=== PATIENT | male | born 1960 | race Caucasian/White ===

== ENCOUNTER 2018-04-11 17:25 | Emergency (ER) | payer MEDICAID ==
[2018-04-11] MEDS ORDERED: DUL20 PO (17:32)
--- NOTE | 2018-04-11 17:40 | ER Report ---
History and Physical Time Seen By MD: 17:29 Hx. of Stated Complaint: HTN, MILD HEADACHES (LAURORA,FREDERICK V DO) HPI/ROS CHIEF COMPLAINT: headaches HISTORY OF PRESENT ILLNESS: PT here for evaluation of htn. Pt blood pressure baseline is usually 135/80ish per pt. PT was started on cymbalta 5 days ago by [facility] for neuropathy. Pt has been on cymbalta for neuropathy years ago and is not sure if he had htn with it in the past. Pt has been taking his blood pressure twice a day since the cymbata was started and has noticed this bp climbing daily. Pt also has had mild headcahe on and off. no cp. no sob. went to [facility] who sent him to urgent care who sent him to ed for further evaluation. REVIEW OF SYSTEMS: Constitutional: No fever, no chills. Eyes: No discharge. ENT: No sore throat. Cardiovascular: No chest pain, no palpitations. Respiratory: No cough, no shortness of breath. Gastrointestinal: No abdominal pain, no vomiting. Genitourinary: No hematuria. Musculoskeletal: No back pain. Skin: No rashes. Neurological: No headache now (EMMIE,FREDERICK V DO) Allergies: Coded Allergies: naproxen (Verified Allergy, Unknown, 04/11/18) Home Meds Active Scripts Lisinopril (LISINOPRIL) 20 Mg Tablet, 20 MG PO QDAY, #30 TAB 0 Refills Prov:LEILA STAPLES MD 04/11/18 Reported Medications Tizanidine Hcl (TIZANIDINE HCL) 2 Mg Capsule, 2 MG PO TID PRN for MUSCLE SPASMS, CAPSULE 04/11/18 Duloxetine Hcl (CYMBALTA) 20 Mg Capcr, 20 MG PO QDAY, #5 CAP 04/11/18 Past Medical/Surgical History pmhx: neuropathy, cervical herniated disc Pshx: cervical disc (LAURORA,FREDERICK V DO) Reviewed Nurses Notes: Yes (EMMIEFREDERICK V DO) Hx Smoking: No Hx Alcohol Use: No (LAURORA,FREDERICK V DO) Constitutional Vital Sign - Last 24 Hours 04/11/18 04/11/18 04/11/18 04/11/18 17:30 17:31 17:32 17:34 Temp 99.1 Pulse ??? 81 Resp 18 B/P (MAP) 205/115 205/115 (145) 222/125 (157) Pulse Ox 95 O2 Delivery Room Air 04/11/18 04/11/18 04/11/18 04/11/18 17:45 18:00 18:15 18:30 Pulse 68 68 B/P (MAP) 213/122 (152) 190/115 (140) 191/121 (144) 205/117 (146) Pulse Ox 93 94 04/11/18 04/11/18 04/11/18 04/11/18 18:40 18:45 18:55 19:00 Pulse 71 66 B/P (MAP) 222/119 (153) 186/122 (143) Pulse Ox 97 94 04/11/18 04/11/18 04/11/18 04/11/18 19:10 19:15 19:25 19:30 Pulse 66 62 B/P (MAP) 190/116 (140) 164/105 (124) Pulse Ox 93 92 04/11/18 04/11/18 04/11/18 04/11/18 19:35 19:45 19:50 20:00 Pulse 62 60 B/P (MAP) 145/98 (114) 131/99 (110) Pulse Ox 94 92 04/11/18 04/11/18 04/11/18 04/11/18 20:05 20:15 20:20 20:30 Pulse 62 60 B/P (MAP) 150/87 (108) 136/88 (104) Pulse Ox 93 94 04/11/18 04/11/18 20:35 20:40 Pulse 62 61 Pulse Ox 94 95 (LEILA STAPLES MD) Physical Exam General Appearance: The patient is alert, has no immediate need for airway protection and no signs of toxicity. Eyes: Pupils equal and round no pallor or injection, EOMI ENT: no pharyngeal erythema or exudates, Mucous membranes are moist, TM are nl b/l Respiratory: There are no retractions, lungs are clear to auscultation. Cardiovascular: Regular rate and rhythm. pulses are equal and symmetrical Gastrointestinal: Abdomen is soft and non tender, no masses, bowel sounds normal, no guarding, no rigidity or rebound Neurological: Cranial nerves II-XII grossly intact, no sensory or motor loss Skin: Warm and dry, no rashes. Musculoskeletal: Neck is supple non tender, no vertebral tenderness Extremities are nontender, non swollen and have full range of motion. DIFFERENTIAL DIAGNOSIS: After history and physical exam differential diagnosis was considered for essential htn, medication reaction to cymbalta (LAURORA,FREDERICK V DO) Medical Decision Making Data Points Result Diagram: 04/11/18174404/11/181744 Laboratory Hematology Test 04/11/18 17:45 Red Blood Count 5.99 M/uL (4.00-5.60) Mean Corpuscular Volume 86.1 fL (80.0-96.0) Mean Corpuscular Hemoglobin 29.8 pg (26.0-33.0) Mean Corpuscular Hemoglobin Concent 34.7 g/dL (32.0-36.0) Red Cell Distribution Width 13.8 % (11.5-14.5) Mean Platelet Volume 7.7 fL (7.2-11.1) Neutrophils (%) (Auto) 72.3 % (39.4-72.5) Lymphocytes (%) (Auto) 15.1 % (17.6-49.6) Monocytes (%) (Auto) 4.7 % (4.1-12.4) Eosinophils (%) (Auto) 5.9 % (0.4-6.7) Basophils (%) (Auto) 2.0 % (0.3-1.4) Nucleated RBC Relative Count (auto) 0.0 /100WBC Neutrophils # (Auto) 7.4 K/uL (2.0-7.4) Lymphocytes # (Auto) 1.5 K/uL (1.3-3.6) Monocytes # (Auto) 0.5 K/uL (0.3-1.0) Eosinophils # (Auto) 0.6 K/uL (0.0-0.5) Basophils # (Auto) 0.2 K/uL (0.0-0.1) Nucleated RBC Absolute Count (auto) 0.00 K/uL Sodium Level 138 mmol/L (137-145) Potassium Level 3.6 mmol/L (3.5-5.0) Chloride Level 101 mmol/L (98-107) Carbon Dioxide Level 23 mmol/L (22-30) Blood Urea Nitrogen 17 mg/dl (9-21) Creatinine 1.20 mg/dl (0.66-1.25) Glomerular Filtration Rate Calc > 60.0 Random Glucose 136 mg/dl (75-110) Calcium Level 9.4 mg/dl (8.4-10.2) Total Bilirubin 0.7 mg/dl (0.2-1.3) Aspartate Amino Transf (AST/SGOT) 28 U/L (0-35) Alanine Aminotransferase (ALT/SGPT) 35 U/L (0-56) Alkaline Phosphatase 67 U/L (0-126) Troponin I < 0.012 ng/ml Total Protein 8.4 g/dl (6.3-8.2) Albumin 4.8 g/dl (3.5-5.0) Chemistry Test 04/11/18 17:45 White Blood Count 10.3 k/uL (4.5-11.0) Red Blood Count 5.99 M/uL (4.00-5.60) Hemoglobin 17.9 g/dL (14.0-18.0) Hematocrit 51.5 % (42.0-52.0) Mean Corpuscular Volume 86.1 fL (80.0-96.0) Mean Corpuscular Hemoglobin 29.8 pg (26.0-33.0) Mean Corpuscular Hemoglobin Concent 34.7 g/dL (32.0-36.0) Red Cell Distribution Width 13.8 % (11.5-14.5) Platelet Count 215 K/uL (150-450) Mean Platelet Volume 7.7 fL (7.2-11.1) Neutrophils (%) (Auto) 72.3 % (39.4-72.5) Lymphocytes (%) (Auto) 15.1 % (17.6-49.6) Monocytes (%) (Auto) 4.7 % (4.1-12.4) Eosinophils (%) (Auto) 5.9 % (0.4-6.7) Basophils (%) (Auto) 2.0 % (0.3-1.4) Nucleated RBC Relative Count (auto) 0.0 /100WBC Neutrophils # (Auto) 7.4 K/uL (2.0-7.4) Lymphocytes # (Auto) 1.5 K/uL (1.3-3.6) Monocytes # (Auto) 0.5 K/uL (0.3-1.0) Eosinophils # (Auto) 0.6 K/uL (0.0-0.5) Basophils # (Auto) 0.2 K/uL (0.0-0.1) Nucleated RBC Absolute Count (auto) 0.00 K/uL Glomerular Filtration Rate Calc > 60.0 Calcium Level 9.4 mg/dl (8.4-10.2) Total Bilirubin 0.7 mg/dl (0.2-1.3) Aspartate Amino Transf (AST/SGOT) 28 U/L (0-35) Alanine Aminotransferase (ALT/SGPT) 35 U/L (0-56) Alkaline Phosphatase 67 U/L (0-126) Troponin I < 0.012 ng/ml Total Protein 8.4 g/dl (6.3-8.2) Albumin 4.8 g/dl (3.5-5.0) (LEILA STAPLES MD) EKG/Imaging EKG Interpretation 12 lead EKG: Rhythm: normal sinus rhythm, rate 74 [place]: normal QRS: Q waves noted in inferior leads ST segments: No elevation or depression noted. Nonspecific T-wave changes, no signs of ischemia (LEILA STAPLES MD) ED Course/Re-evaluation ED Course BP elevated in both arms. Will check basic labs. Treatment may be related to his age or the cymbalta. Would consider changing cy mbalta to neurontin. Signed out to dr. Staples pending labs and ekg. (FREDERICK DAVIS DO) Clinical Indication for ER IV: IV Access ED Course I reviewed this patient with Dr. Davis at shift change and assumed care. Labs obtained (CBC and CMP) were negative. The patient has not had his blood pressure come down with 20mg of oral Lisinopril. Went and discussed with the patient. He was given 20mg of IV Labetalol. Over the next hour, the patient's blood pressure did come down to more acceptable range. His troponin was negative. EKG as noted above. Recommended that he continue on lisinopril 20 mg once a day and follow-up with his primary care provider for repeat labs and further evaluation of blood pressure. He would like to continue the Cymbalta, we're not sure if this is the cause of his elevated blood pressure or not this seems to be the only thing that helps is neuropathic pain. Decision to Disposition Date: Apr 11, 2018 Decision to Disposition Time: 20:56 (LEILA STAPLES MD) Depart Departure Latest Vital Signs Vital Signs Date Time Temp Pulse Resp B/P (MAP) Pulse Ox O2 Delivery O2 Flow Rate FiO2 04/11/18 20:40 61 95 04/11/18 20:30 136/88 (104) 04/11/18 17:31 99.1 18 Room Air (LEILA STAPLES MD) Impression: Primary Impression: Hypertensive urgency Condition: Improved Disposition: HOME OR SELF-CARE New Scripts Lisinopril (LISINOPRIL) 20 Mg Tablet 20 MG PO QDAY, #30 TAB 0 Refills Prov: LEILA STAPLES MD 04/11/18 Patient Instructions: Hypertension (ED) Additional Instructions: Take Lisinopril 20mg once a day in the morning. Start first dose tomorrow morning. Follow-up with your primary care provider in the next 5-10 days for re- evaluation on the effect of the blood pressure medicine and repeat labs. FREDERICK DAVIS DO Apr 11, 2018 17:40 LEILA STAPLES MD Apr 11, 2018 19:20
[2018-04-11] MEDS ORDERED: LISINOPRIL 20 MG TAB PO ONE (17:45)
--- NOTE | 2018-04-11 17:50 | EKG ---
FACILITY: [facility] PATIENT NAME: CHENTE DIEZ : [id number] MR: [id number] V: [id number] EXAM DATE: ORDERING PHYSICIAN: FREDERICK OLEA TECHNOLOGIST: Test Reason : hypertension Blood Pressure : / mmHG Vent. Rate : 074 BPM Atrial Rate : 074 BPM P-R Int : 180 ms QRS Dur : 092 ms QT Int : 386 ms P-R-T Axes : 031 072 056 degrees QTc Int : 428 ms Normal sinus rhythm Possible Inferior infarct , age undetermined Abnormal ECG No previous ECGs available Confirmed by Jordan Dean ([id number]) on 04/11/2018 6:46:39 PM Referred By: Confirmed By:Jordan Asher
[2018-04-11 17:56] LABS: PLATELET COUNT, AUTOMATED 215 K/uL (150-450)
[2018-04-11] MEDS ORDERED: LABETALOL HCL 100 MG/20ML VIAL IVP ONE (18:40)
[2018-04-11 20:30] VITALS: BP 136/88
[2018-04-11] MEDS ORDERED: LISI20TA29 PO (20:57)
[2018-04-11] MEDS ORDERED: TIZA2CAP3 PO (21:09)
== END 2018-04-11 21:05 | disposition home or self-care (01) ==
LOC: ER 18:08
DX: I16.0 Hypertensive urgency (principal)
CPT/HCPCS: 84443; 84484; 85025; 93005; 96374; 99283; J3490; 82040; 82247; 82310; 82374; 82435; 82565; 82947; 84075; 84132; 84155; 84295; 84450; 84460; 84520

== ENCOUNTER 2018-05-15 14:22 | Emergency (ER) | payer MEDICAID ==
[~2018-05-15 14:22] MED LIST: DUL20 PO; LISI20TA29 PO; TIZA2CAP3 PO
[2018-05-15] MEDS ORDERED: DULO60CA56 PO (14:37)
[2018-05-15 14:38] VITALS: BP 155/106
--- NOTE | 2018-05-15 15:07 | ER Report ---
History and Physical Time Seen By MD: 14:40 Hx. of Stated Complaint: C/O FALL 2 HOURS AGO WHEN SLIPPED ON ICE, LANDED ON SHOULDER AND L HIP. NOW H/A, NECK PAIN, TSPINE PAIN. DENIES LOC. MULT NECK SURGERIES. HPI/ROS CHIEF COMPLAINT: headache, neck pain HISTORY OF PRESENT ILLNESS: Pt was walking on sidewalk about 2 hrs [employer] when he slipped and fell, with feet slipping straight out from under him; pt landded on back, more on left side/shoulder than right. He struck head and was dzed but does not believe he lost consciousness. He states that sympotms have persisted and as he is s/p cspine fusion remotely. Pt has moderate pain, from cspine to mid thoracic. He also c/o mild increase in his baseline tingling and weakness of bilateral upper extremities. Finally, he complains of slight shortness of breath across mid chest that has persisteed x 2 hours and has not improved. He has no incotninence or lower extremity weakness. He has mild frontal headache that is non radiating, is throbbing. REVIEW OF SYSTEMS: Constitutional: No fever, no chills. Eyes: No discharge. ENT: No sore throat. Cardiovascular: above Respiratory: above Gastrointestinal: No abdominal pain, no vomiting. Genitourinary: No hematuria. Musculoskeletal: above Skin: No rashes. Neurological: above Remainder of the 14 system rev: Yes Allergies: Coded Allergies: naproxen (Verified Allergy, Unknown, 05/15/18) Home Meds Active Scripts Lisinopril (LISINOPRIL) 20 Mg Tablet, 20 MG PO QDAY, #30 TAB 0 Refills Prov:LEILA ABREU MD 04/11/18 Reported Medications Duloxetine Hcl (CYMBALTA) 60 Mg Capsule.dr, 60 MG PO QDAY, #5 CAP 05/15/18 Tizanidine Hcl (TIZANIDINE HCL) 2 Mg Capsule, 2 MG PO TID PRN for MUSCLE SPASMS, CAPSULE 04/11/18 Discontinued Reported Medications Duloxetine Hcl (CYMBALTA) 20 Mg Capcr, 20 MG PO QDAY, #5 CAP 04/11/18 Reviewed Nurses Notes: Yes Hx Smoking: No Hx Alcohol Use: No Constitutional Vital Sign - Last 24 Hours 05/15/18 14:38 Temp 98.6 Pulse 73 Resp 16 B/P (MAP) 155/106 Pulse Ox 97 O2 Delivery Room Air Physical Exam General Appearance: The patient is alert, has no immediate need for airway protection and no signs of toxicity. Eyes: Pupils equal and round no pallor or injection. ENT, Mouth: Mucous membranes are moist. Respiratory: There are no retractions, lungs are clear to auscultation. Cardiovascular: Regular rate and rhythm. Gastrointestinal: Abdomen is soft and non tender, no masses, bowel sounds normal. Neurological: alert, oriented, cn ii-xii intact, moves all extremities. 5/5 ue ext strength throughout. lt touch sensation intact throughout though slightly diminished bilaterally throughout both arms. LE 5/5 ms, reflexes 2+ bilat LE. Skin: Warm and dry, no rashes. Musculoskeletal: pt in c collar, ttp throughout cspine to mid tspine. slight bilateral paraspinal ttp. Extremities are nontender, nonswollen and have full range of motion. DIFFERENTIAL DIAGNOSIS: After history and physical exam differential diagnosis was considered for chi, cspine/tspine injury, pneumothorax, or other emergent result of fall. Medical Decision Making ED Course/Re-evaluation ED Course Pt presents after GLF; sgs/sypmtoms c/w mild 'stinger' without true neurologic change or deficit. Symptoms improved in ED. Imaging unremarkable and rpt exam shows no new findings. Pt very comfortable at d/c, declines pain medication. Understands SRP's for progressive sympotms, uncontrolled pain, or any concerns. Decision to Disposition Date: May 15, 2018 Decision to Disposition Time: 16:13 Depart Departure Latest Vital Signs Vital Signs Date Time Temp Pulse Resp B/P (MAP) Pulse Ox O2 Delivery O2 Flow Rate FiO2 05/15/18 14:38 98.6 73 16 155/106 97 Room Air Impression: Primary Impression: Neck strain Additional Impression: Closed head injury Condition: Improved Disposition: HOME OR SELF-CARE Patient Instructions: Cervical Strain (ED), Concussion (ED) Additional Instructions: As we discussed, return for worsening symptoms, new numbness or weakness, or any concerns. Problem Qualifiers Primary Impression: Neck strain Encounter type: initial encounter Qualified Codes: S16.1XXA - Strain of muscle, fascia and tendon at neck level, initial encounter Additional Impression: Closed head injury Encounter type: initial encounter Qualified Codes: S09.90XA - Unspecified injury of head, initial encounter JOAN TANNER MD May 15, 2018 15:07
--- NOTE | 2018-05-15 15:35 | RADIOLOGY IMAGING REPORT ---
FACILITY: [facility] PATIENT NAME: Paulino Ochoa : 1960 MR: [id number] V: [id number] EXAM DATE: ORDERING PHYSICIAN: JAON TANNER TECHNOLOGIST: Location: [facility] Patient: Paulino Ochoa : 1960 Visit/Account:[id number] Date of Sevice: 05/15/2018 EXAMINATION: CT head without IV contrast HISTORY: Fall. Struck head. TECHNIQUE: Axial CT images of the head were obtained from the vertex to the skull base without IV c ontrast, with coronal and sagittal 2D reconstructed images. One of the following dose optimization techniques was utilized in the performance of this exam: Autom ated exposure control; adjustment of the mA and/or kV according to the patient's size; or use of an i terative reconstruction technique. Specific details can be referenced in the facility's radiology C T exam operational policy. COMPARISON: None. FINDINGS: Mild ventriculomegaly, with mild symmetric dilatation of both lateral ventricles. This is likely rn chronic jenna. The third and fourth ventricles are normal in caliber. The intracranial contents are otherwise unremarkable. No CT evidence of intracranial hemorrhage, mass lesion, or acute infarct. No midline shift or extra-axial fluid collections. Guillen-white differentiat ion is maintained. The calvarium is intact. The partially visualized paranasal sinuses and mastoid air cells are unopaci fied. IMPRESSION: 1. No CT evidence of acute intracranial pathology. 2. Mild ventriculomegaly with mild symmetric dilatation of the lateral ventricles. Report Dictated By: Eber Polanco MD at 05/15/2018 3:27 PM Report E-Signed By: Eber Polanco MD at 05/15/2018 3:31 PM WSN:[id number]
--- NOTE | 2018-05-15 15:40 | RADIOLOGY IMAGING REPORT ---
FACILITY: [facility] [place] PATIENT NAME: Paulino Ochoa : 1960 MR: [id number] V: [id number] EXAM DATE: ORDERING PHYSICIAN: JOAN TANNER TECHNOLOGIST: Location: [facility] Patient: Paulino Ochoa : 1960 Visit/Account:[id number] Date of Sevice: 05/15/2018 EXAMINATION: CT cervical spine without IV contrast HISTORY: Fall. Struck head. TECHNIQUE: Thin axial CT images of the cervical spine were obtained without IV contrast, with sagit catherine and coronal 2D reconstructed images. One of the following dose optimization techniques was utilized in the performance of this exam: Autom ated exposure control; adjustment of the mA and/or kV according to the patient's size; or use of an i terative reconstruction technique. Specific details can be referenced in the facility's radiology C T exam operational policy. COMPARISON: None. FINDINGS: The cervical spine is negative for acute fracture or subluxation. Normal alignment. Prior cervical spine surgery. There has been a prior corpectomy at C6, with anterior instrumented fus ion at C5-C7 with plate and screw fixation. Hardware appears intact. There is moderate disc space narrowing at the unfused C2-C3 through C4-C5 levels, with endplate osteo phyte formation. There is calcification of the posterior longitudinal ligament at the C5 level. Moderate facet arthropathy along the mid and upper left-sided cervical facet joints, with bony ankylo sis across the C4-C5 facet joint. Minimal right-sided facet arthropathy. The dens is intact. The C1 ring is intact, with normal alignment at the craniocervical junction. IMPRESSION: 1. No acute osseous findings along the cervical spine. Normal alignment. 2. Chronic degenerative and postsurgical changes with anterior fusion at C5-C7. Report Dictated By: Eber Polanco MD at 05/15/2018 3:32 PM Report E-Signed By: Eber Polanco MD at 05/15/2018 3:36 PM WSN:[id number]
--- NOTE | 2018-05-15 15:51 | RADIOLOGY IMAGING REPORT ---
F[place] [facility] [place]IENT NAME: Paulino Ochoa : 1960 MR: [id number] V: [id number] EXAM DATE: ORDERING PHYSICIAN: JOAN TANNER TECHNOLOGIST: Location: [facility] [place] Patient: Paulino Ochoa : 1960 Visit/Account:[id number] Date of Sevice: 05/15/2018 EXAMINATION: CT thoracic spine without IV contrast HISTORY: Fall. Struck head. TECHNIQUE: Thin axial CT images of the thoracic spine were obtained without IV contrast, with sagit catherine and coronal 2D reconstructed images. One of the following dose optimization techniques was utilized in the performance of this exam: Autom ated exposure control; adjustment of the mA and/or kV according to the patient's size; or use of an i terative reconstruction technique. Specific details can be referenced in the facility's radiology C T exam operational policy. COMPARISON: None. FINDINGS: The thoracic spine is negative for acute fracture or subluxation. Normal alignment. Vertebral body he ight is maintained. Mild multilevel degenerative changes throughout the thoracic spine, with mild hypertrophic endplate c hanges. The posterior elements are intact, with normal alignment along the thoracic facet joints. Paraspinal soft tissues are unremarkable by CT. Both kidneys are partially imaged. There are small nonobstructing renal calculi bilaterally. IMPRESSION: No acute osseous findings along the thoracic spine. Normal alignment. Report Dictated By: Eber Polanco MD at 05/15/2018 3:38 PM Report E-Signed By: Eber Polanco MD at 05/15/2018 3:48 PM WSN:[id number]
--- NOTE | 2018-05-15 15:52 | RADIOLOGY IMAGING REPORT ---
FACILITY: [facility] PATIENT NAME: Paulino Ochoa : 1960 MR: [id number] V: [id number] EXAM DATE: ORDERING PHYSICIAN: JOAN TANNER TECHNOLOGIST: [place] [facility] [place] Ocho[place] : 1960 Visit/Account:[id number] Date of Sevice: 05/15/2018 Single view of the chest Indication: Shortness of breath. Comparison: None available Findings: Heart size within normal limits. Lungs are clear. No acute bony finding. No pneumothorax or pleural effusion. IMPRESSION: 1. No acute cardiopulmonary process. Report Dictated By: Artem Lopez MD at 05/15/2018 3:48 PM Report E-Signed By: Artem Lopez MD at 05/15/2018 3:48 PM WSN:[id number]
[2018-05-15] MEDS ORDERED: ACETAMINOPHEN 325 MG TAB PO ONE (16:25)
== END 2018-05-15 16:38 | disposition home or self-care (01) ==
LOC: ER 14:41
DX: S16.1XXA Strain of muscle, fascia and tendon at neck level, initial encounter (principal); S09.90XA Unspecified injury of head, initial encounter; W00.0XXA Fall on same level due to ice and snow, initial encounter
CPT/HCPCS: 70450; 71045; 72125; 72128; 99284; L0120; L0172

== ENCOUNTER 2018-07-26 10:52 | Emergency (ER) | payer MEDICAID ==
[~2018-07-26 10:52] MED LIST changes: +DULO60CA56 PO
--- NOTE | 2018-07-26 11:29 | ER Report ---
History and Physical Time Seen By MD: 11:29 HPI/ROS CHIEF COMPLAINT: Bloating HISTORY OF PRESENT ILLNESS: 58-year-old male patient presents to the emergency room with complaint of bloating. Patient states that he has been having problems for the past week. He states he is currently being treated for sinusitis with antibiotics. He states it was after the start of this antibiotics he developed the bloating. He is concerned that he may be having a change in his bacterial teofilo of his intestines. Patient states that he has not had a bowel movement for the last 2 days. He states the last time he did have a bowel movement they did note some bright red blood. He denies having any fevers, chills, vomiting. Yola ent states he's been nauseated today. Patient states that he has been able to eat. He states this been drinking without any difficulties. REVIEW OF SYSTEMS: Respiratory: No cough, no dyspnea. Cardiovascular: No chest pain, no palpitations. Gastrointestinal: No vomiting, no abdominal pain. Musculoskeletal: No back pain. Allergies: Coded Allergies: naproxen (Verified Allergy, Unknown, 05/15/18) Home Meds Reported Medications [antibiotic pillsx2] No Conflict Check 07/26/18 Gabapentin (GABAPENTIN) 300 Mg Capsule, 600 MG PO QDAY, CAPSULE 07/26/18 Multivitamin (MULTIVITAMINS) 1 Each Capsule, 1 EACH PO, CAPSULE 07/26/18 Discontinued Reported Medications Duloxetine Hcl (CYMBALTA) 60 Mg Capsule.dr, 60 MG PO QDAY, #5 CAP 05/15/18 Tizanidine Hcl (TIZANIDINE HCL) 2 Mg Capsule, 2 MG PO TID PRN for MUSCLE SPASMS, CAPSULE 04/11/18 Discontinued Scripts Lisinopril (LISINOPRIL) 20 Mg Tablet, 20 MG PO QDAY, #30 TAB 0 Refills Prov:LEILA ABREU MD 04/11/18 Past Medical/Surgical History Patient has a past medical history of hypertension, hyperlipidemia, spinal cord injury, ocular rosacea, sinusitis. Patient has a surgical history of cervical spine surgeries. Reviewed Nurses Notes: Yes Hx Smoking: No Hx Alcohol Use: No Constitutional Vital Sign - Last 24 Hours 07/26/18 07/26/18 07/26/18 07/26/18 11:22 11:24 11:25 11:37 Pulse ??? 65 56 Resp 16 B/P (MAP) 147/93 147/93 (111) Pulse Ox 92 91 O2 Delivery Room Air 07/26/18 07/26/18 07/26/18 07/26/18 11:52 12:07 12:22 12:37 Temp 97.7 Pulse 56 ??? 64 Pulse Ox 91 92 07/26/18 07/26/18 07/26/18 07/26/18 12:37 12:41 12:46 13:00 Pulse 62 62 B/P (MAP) 157/96 (116) 131/86 (101) Pulse Ox 95 94 07/26/18 07/26/18 07/26/18 07/26/18 13:01 13:16 13:30 13:31 Pulse 59 60 58 B/P (MAP) 108/69 (82) Pulse Ox 91 93 94 Physical Exam General Appearance: The patient is alert, has no immediate need for airway protection and no current signs of toxicity. Respiratory: Chest is non tender, lungs are clear to auscultation. Cardiac: regular rate and rhythm Gastrointestinal: Abdomen is soft and non tender, no masses, bowel sounds normal. Musculoskeletal: Neck: Neck is supple and non tender. Extremities have full range of motion and are non tender. Skin: No rashes or lesions. DIFFERENTIAL DIAGNOSIS: After history and physical exam differential diagnosis was considered for constipation, hemorrhoids, gastroenteritis. Medical Decision Making Data Points Laboratory Hematology Test 07/26/18 11:20 Urine Color Yellow Urine Clarity Clear Urine pH 5.0 pH (4.8-9.5) Urine Specific [place] 1.011 Urine Protein Negative mg/dL (NEGATIVE) Urine Glucose (UA) Negative mg/dL (NEGATIVE) Urine Ketones Negative mg/dL (NEGATIVE) Urine Blood Negative (NEGATIVE) Urine Nitrite Negative (NEGATIVE) Urine Bilirubin Negative (NEGATIVE) Urine Urobilinogen Negative mg/dL (0.2-1.9) Urine Leukocyte Esterase Negative (NEGATIVE) Urine RBC <1 /HPF (0-2/HPF) Urine WBC 1 /HPF (0-5/HPF) Urine Squamous Epithelial Cells None /LPF (</=FEW) Urine Bacteria Negative /HPF (NONE-FEW) Urine Mucus None /HPF (NONE-FEW) Chemistry Test 07/26/18 11:20 Urine Color Yellow Urine Clarity Clear Urine pH 5.0 pH (4.8-9.5) Urine Specific [place] 1.011 Urine Protein Negative mg/dL (NEGATIVE) Urine Glucose (UA) Negative mg/dL (NEGATIVE) Urine Ketones Negative mg/dL (NEGATIVE) Urine Blood Negative (NEGATIVE) Urine Nitrite Negative (NEGATIVE) Urine Bilirubin Negative (NEGATIVE) Urine Urobilinogen Negative mg/dL (0.2-1.9) Urine Leukocyte Esterase Negative (NEGATIVE) Urine RBC <1 /HPF (0-2/HPF) Urine WBC 1 /HPF (0-5/HPF) Urine Squamous Epithelial Cells None /LPF (</=FEW) Urine Bacteria Negative /HPF (NONE-FEW) Urine Mucus None /HPF (NONE-FEW) Urinalysis Test 07/26/18 11:20 Urine Color Yellow Urine Clarity Clear Urine pH 5.0 pH (4.8-9.5) Urine Specific [place] 1.011 Urine Protein Negative mg/dL (NEGATIVE) Urine Glucose (UA) Negative mg/dL (NEGATIVE) Urine Ketones Negative mg/dL (NEGATIVE) Urine Blood Negative (NEGATIVE) Urine Nitrite Negative (NEGATIVE) Urine Bilirubin Negative (NEGATIVE) Urine Urobilinogen Negative mg/dL (0.2-1.9) Urine Leukocyte Esterase Negative (NEGATIVE) Urine RBC <1 /HPF (0-2/HPF) Urine WBC 1 /HPF (0-5/HPF) Urine Squamous Epithelial Cells None /LPF (</=FEW) Urine Bacteria Negative /HPF (NONE-FEW) Urine Mucus None /HPF (NONE-FEW) EKG/Imaging Imaging Exam type: ACUTE ABDOMEN SERIES 3 VIEW History: bloating Comparison: May 15, 2018. Findings: Supine and upright views the abdomen demonstrate a moderate amount of fecal material in the colon. Remainder the bowel gas pattern is nonspecific. Several small calcifications projecting over the right renal shadow may be within the right kidney or possibly overlapping bowel contents. Spleen appears mildly prominent. There are calcified phleboliths in the pelvis. There are mild spondylotic changes of the lumbar spine PA view the chest reveals no evidence of acute pulmonary infiltrates pleural effusions or pulmonary edema. The cardiac silhouette is normal in size. There are postsurgical changes lower cervical spine. IMPRESSION: 1. Moderate amount of fecal material seen in the colon which can be seen with constipation Round calcified occasions projecting over the right renal shadow may be within the right kidney versus overlapping bowel contents Spleen appears mildly prominent Report Dictated By: Yasmin Smith MD at 07/26/2018 12:53 PM Report E-Signed By: Yasmin Smith MD at 07/26/2018 12:56 PM ED Course/Re-evaluation ED Course Patient was admitted return exam room, history and physical were obtained. Differential diagnoses were considered. On examination lungs are clear, heart regular, abdomen is soft and nontender. A urinalysis and an acute abdominal x- ray were done. Urinalysis was negative. Acute abdominal x-ray does show moderate stool burden throughout the entire colon consistent with constipation. I believe this is likely the reason for the patient being bloated. I discussed the findings with patient. At that time I did do a rectal exam. Patient does have hemorrhoids and does have some information to hemorrhoid located at 3:00. I will go ahead and have the patient take magnesium citrate. However with patient complaining of blood in his stool I would like and have a colonoscopy. I don't believe that there is a reason to do an emergent colonoscopy at this time. We will go ahead and have him follow-up with either Dr. Topete or Dr. Leyva for outpatient colonoscopy. Patient verbalized understanding and agreement with plan. Decision to Disposition Date: Jul 26, 2018 Decision to Disposition Time: 13:41 Depart Departure Latest Vital Signs Vital Signs Date Time Temp Pulse Resp B/P (MAP) Pulse Ox O2 Delivery O2 Flow Rate FiO2 07/26/18 13:31 58 94 07/26/18 13:30 108/69 (82) 07/26/18 12:37 97.7 07/26/18 11:24 16 Room Air Impression: Primary Impression: Constipation Condition: Improved Disposition: HOME OR SELF-CARE Referrals: TENA [facility] (PCP) MIKO LEYVA JOHN A MD Patient Instructions: Constipation (ED) Additional Instructions: Increase fluid intake. Get plenty of rest. Limit activity by pain. Follow up with a general surgeon for a colonoscopy. Take the Magnesium Citrate when you return home. Take an additional bottle tomorrow if you don't have any results. Return to the ER if condition worsens. Problem Qualifiers Primary Impression: Constipation Constipation type: unspecified constipation type Qualified Codes: K59.00 - Constipation, unspecified KARIN CUI Jul 26, 2018 11:29
[2018-07-26] MEDS ORDERED: [UNRECOGNIZED DRUG - REMARK] (12:46)
[2018-07-26] MEDS ORDERED: GABA-549 PO (12:46)
[2018-07-26] MEDS ORDERED: MULT1CAP59 PO (12:46)
--- NOTE | 2018-07-26 13:02 | RADIOLOGY IMAGING REPORT ---
[place]AC[place] [facility] [place] NAME: Paulino Ochoa : 1960 MR: [id number] V: [id number] EXAM DATE: ORDERING PHYSICIAN: KARIN CUI TECHNOLOGIST: Location: [facility] Patient: Paulino Ochoa : 1960 Visit/Account:[id number] Date of Sevice: 07/26/2018 Exam type: ACUTE ABDOMEN SERIES 3 VIEW History: bloating Comparison: May 15, 2018. Findings: Supine and upright views the abdomen demonstrate a moderate amount of fecal material in the colon. R emainder the bowel gas pattern is nonspecific. Several small calcifications projecting over the righ t renal shadow may be within the right kidney or possibly overlapping bowel contents. Spleen appears mildly prominent. There are calcified phleboliths in the pelvis. There are mild spon dylotic changes of the lumbar spine PA view the chest reveals no evidence of acute pulmonary infiltrates pleural effusions or pulmonary e cooper. The cardiac silhouette is normal in size. There are postsurgical changes lower cervical spine . IMPRESSION: 1. Moderate amount of fecal material seen in the colon which can be seen with constipation Round calcified occasions projecting over the right renal shadow may be within the right kidney versu s overlapping bowel contents Spleen appears mildly prominent Report Dictated By: Yasmin Smith MD at 07/26/2018 12:53 PM Report E-Signed By: Yasmin Smith MD at 07/26/2018 12:56 PM WSN:[email or web address]
[2018-07-26 13:30] VITALS: BP 108/69
[2018-07-26] MEDS ORDERED: MAGNESIUM CITRATE 300 ML BTL PO ONE (13:40)
== END 2018-07-26 13:53 | disposition home or self-care (01) ==
LOC: ER 11:23
DX: K59.00 Constipation, unspecified (principal); K64.9 Unspecified hemorrhoids
CPT/HCPCS: 74022; 81001; 99283

== ENCOUNTER 2018-09-06 03:39 | Observation (INO) | payer MEDICAID ==
[2018-09-06] VITALS (11 sets, daily range): BP systolic 110–168; BP diastolic 71–99
[~2018-09-06] VITALS: Ht 172.7 cm; Wt 87.5 kg
[~2018-09-06 03:39] MED LIST changes: +AMLO-125 PO; +DOXY50CA27 PO; +GABA-549 PO; +LOSA25TA57 PO; +MULT1CAP59 PO; +SERT-181 PO; +SIMV-49 PO; +[UNRECOGNIZED DRUG - REMARK]
[2018-09-06] MEDS: FAMOTIDINE 20 MG TAB PO ONE ×2 (07:40→08:30)
[2018-09-06] MEDS ORDERED: MIDAZOLAM 2 MG/2 ML VIAL IVP PRN (08:30)
[2018-09-06] MEDS ORDERED: NORMOSOL R SOLN(*) 1000 ML BAG 1,000 ML IV PRN (08:30)
[2018-09-06] MEDS ORDERED: LIDOCAINE/SOD BICARB 8.4% SYR ID ONE (08:30)
[2018-09-06] MEDS ORDERED: cefTRIAXone(*) 1 GM VIAL 1 GM in NS(*) 0.9% 100 ML ADDVANT BAG 100 ML IVPB ONE (08:35)
[2018-09-06] MEDS ORDERED: cefTRIAXone 1 GM VIAL IVP ONE (08:35)
[2018-09-06] MEDS ORDERED: metroNIDAZOLE* 500MG/100ML BAG 100 ML IVPB ONE (08:35)
[2018-09-06] MEDS ORDERED: FAMOTIDINE 20 MG/50 ML PREMIX IVPB ONE (08:40)
[2018-09-06] MEDS ORDERED: fentaNYL CITR 100 MCG/2 ML AMP ONE ×2 (08:45→10:48)
[2018-09-06] MEDS ORDERED: FAMOTIDINE(*) 20MG/50ML PREMIX 50 ML IVPB ONE (08:45)
[2018-09-06] MEDS ORDERED: LIDOCAINE 2% IV 100 MG/5ML SYR ONE (08:46)
[2018-09-06] MEDS ORDERED: PROPOFOL EMUL(*) 10MG/ML 20 ML 20 ML ONE (08:47)
[2018-09-06 09:18] LABS: PLATELET COUNT, AUTOMATED 158 K/uL (150-450)
[2018-09-06] MEDS ORDERED: BUPIVACAINE/EPI 0.5% 50ML VIAL INFIL ONE (09:46)
[2018-09-06] MEDS ORDERED: LIDOCAINE 2% JELLY 30 ML TUBE ONE (09:46)
[2018-09-06] MEDS ORDERED: DEXAMETHASONE SOD 4 MG/ML VIAL ONE (10:15)
[2018-09-06] MEDS ORDERED: ONDANSETRON 4 MG/2 ML VIAL ONE (10:15)
[2018-09-06] MEDS ORDERED: KETOROLAC 30 MG/ML VIAL ONE (11:18)
[2018-09-06] MEDS ORDERED: APAP/HYDROCODONE 325/7.5 TAB PO PRN (12:00)
[2018-09-06] MEDS ORDERED: HYDROmorphone HCL 2 MG/ML SDV IV PRN (12:00)
--- NOTE | 2018-09-06 12:11 | Post Operative Progress Note ---
Post Operative Progress Note Date: Sep 06, 2018 Time: 12:03 Surgeon: dr. erum ann #[id number] Terrazzo Polisher Helper: none Anesthesia: gen, local dr. woods Pre-Op Diagnosis: brbpr, hemorrhoids Post-Op Diagnosis: same colon polyps Findings: colon polyps hemorrhoids Procedure(s): colonoscopy with polypectomy hemorrhoidectomy Specimen Removed:(May be N/A): polyps hemorrhoids Complications: none Fluids: iv crystalloid Estimated Blood Loss: minimal Date OP Note Dictated: Sep 06, 2018 Time OP Note Dictated: 12:04 MIKO ANN Sep 06, 2018 12:11
--- NOTE | 2018-09-06 13:40 | OPERATIVE REPORT 1 ---
EVENT DATE: September 06, 2018 SURGEON: Harshal Leyva MD ANESTHESIOLOGIST: Rm Esteban MD ANESTHESIA: General and local. SINGER SONGWRITER: None. PREOPERATIVE DIAGNOSES 1. Bright red blood per rectum. 2. Hemorrhoids. POSTOPERATIVE DIAGNOSES 1. Bright red blood per rectum. 2. Hemorrhoids. 3. Colon polyps. PROCEDURE PERFORMED 1. Colonoscopy with hot forceps polypectomy and snare polypectomy. 2. Hemorrhoidectomy. 3. Exam under anesthesia. FLUIDS IV crystalloid. ESTIMATED BLOOD LOSS Minimal. SPECIMENS Colon polyps and hemorrhoids. COMPLICATIONS None. INDICATIONS This is a 58-year old male with bloating and some bright red blood per rectum. He also has hemorrhoids that he would like to have removed. He has not had a colonoscopy in the past. The risks and benefits of the procedure were explained and consent was signed. DESCRIPTION OF PROCEDURE Patient was taken to the operating room and placed in the supine position. General anesthesia was administered per the Anesthesia team. The patient was placed in a frogleg position. Digital rectal exam was performed and was unremarkable. The colonoscope was then advanced from the anus to the cecum under direct visualization. The cecum was identified by the appendiceal orifice and the ileocecal valve. The colonoscope was slowly withdrawn. In the sigmoid colon, there were four polyps. These were 5 mm at the largest. These were removed with hot forceps, removed completely and retrieved in the rectosigmoid junction. There was a sessile polyp that was approximately 7 mm in diameter. This was removed with hot snare and also with hot forceps. It was removed completely and retrieved. In the rectum, there was a 3 mm polyp that was removed with hot forceps. It was removed completely and retrieved. In the sigmoid colon, there were several small diverticula. The carbon dioxode was suctioned from the rectum and the colonoscope was withdrawn. The patient was then placed in stirrups. He was prepped and draped in sterile fashion. Perianal exam was performed and patient had external hemorrhoids, most significantly on the right. Anal exam under anesthesia was performed in addition to the perianal exam. The buttocks had been taped prior to prepping and draping for exposure. Hill-Arteaga retractor was also used for exposure. A small incision was made in the perianal skin on the right. The hemorrhoid tissue was dissected off the internal sphincter muscle with a hemostat and then a LigaSure was used to remove the hemorrhoid tissue. Care was taken to protect the internal sphincter muscle. This wound was then closed with a running locking 3-0 Chromic stitch. On the left, there was a smaller external hemorrhoid and this extended as an internal as well but the majority of what was removed was an external hemorrhoid. A small incision was made in the perianal skin with electrocautery. Blunt dissection with a hemostat was used to free the hemorrhoid tissue off the internal sphincter muscle. LigaSure was then used to remove the hemorrhoid tissue. This was also closed with a running locking 3-0 Chromic stitch. Hemostasis was assured. I was able to easily pass a finger into the anal canal. Local analgesia was injected at the wound site as well as a perianal block. Lidocaine gel foam was then placed in the anus. The patient tolerated the procedure well. There were no complications. [place]
[2018-09-06] MEDS: DOCUSATE SODIUM 100 MG CAP PO SCH (20:57)
[2018-09-07 02:10] VITALS: BP 113/71
--- NOTE | 2018-09-07 07:53 | General Surgery Progress Note ---
Subjective Progress Notes Subjective doing well. minimal pain. no pain meds last night. Physical Exam Vital Signs Date Time Temp Pulse Resp B/P (MAP) Pulse Ox O2 Delivery O2 Flow Rate FiO2 09/07/18 02:10 91 09/07/18 02:10 98.9 72 16 113/71 (85) Room Air 09/06/18 16:30 2.0 Intake and Output 09/07/18 07:00 Intake Total 2020 ml Output Total 10 ml Balance 2010 ml Intake Oral 1020 ml IV Total 1000 ml Output Estimated Blood Loss 10 ml Other 0 ml # Voids 1 General Appearance: No Acute Distress Cardiovascular: Other (reg rate) Result Diagram: 09/06/18 0903 09/06/18 09 Assessment and Plan Problems: (1) S/P hemorrhoidectomy Assessment & Plan: s/p hemorrhoidectomy. doing well. home today. Exam Sepsis Risk: No Definite Risk MIKO ROBERTS Sep 07, 2018 07:53
[2018-09-07 08:02] VITALS: BP 145/92
[2018-09-07] MEDS ORDERED: HYDR-654 PO (08:05)
[2018-09-07] MEDS ORDERED: LIDO15SO2 TOP (08:07)
--- NOTE | 2018-09-07 08:10 | Hospitalist Depart ---
Discharge Summary Reason for Hosp/Final Diag: (1) S/P hemorrhoidectomy Hospital Course & Plan: s/p hemorrhoidectomy. doing well. home today. Departure Weight (Pounds): 193 Result Diagram: 09/06/1890209/06/18902 Condition: Improved Discharge: Home Discharge Instructions Home Meds Active Scripts Lidocaine HCl VISCOUS 2% (Lidocaine Viscous) 2 % Solution, 1 DORIAN TOP Q4H PRN for PAIN, #1 TUBE 1 Refill Prov:MIKO ANN 09/07/18 Hydrocodone Bit/Acetaminophen (NORCO 7.5-325 TABLET) 1 Each Tablet, 1 EACH PO Q4H PRN for PAIN, #30 TAB Prov:MIKO ANN 09/07/18 Reported Medications Losartan Potassium (LOSARTAN POTASSIUM) 25 Mg Tablet, 25 MG PO QDAY 09/05/18 Amlodipine Besylate (AMLODIPINE BESYLATE) 5 Mg Tablet, 1 TAB PO QDAY, TAB 09/05/18 Simvastatin (SIMVASTATIN) 20 Mg Tablet, 20 MG PO HS, TAB 09/05/18 Doxycycline Hyclate (DOXYCYCLINE HYCLATE) 50 Mg Capsule, 50 MG PO DAILY, CAPSULE 09/05/18 Sertraline Hcl (SERTRALINE HCL) 100 Mg Tablet, 1 TAB PO QDAY, TAB 09/05/18 Gabapentin (GABAPENTIN) 300 Mg Capsule, 300 MG PO QDAY, CAPSULE 07/26/18 Diet: Regular Activity: As Tolerated Special Instructions: sitz baths for 15 min 3 times/day and prn. stool softener, fiber, and prn laxative. follow up dr. ann 2 wks ([phone]). Venous Thromboembolism Antithrombotics Is Pt On Any Antithrombotics?: Yes MIKO ANN Sep 07, 2018 08:10
[2018-09-07] MEDS: DOCUSATE SODIUM 100 MG CAP PO SCH (08:22)
[2018-09-07] MEDS ORDERED: ENOXAPARIN 40 MG/0.4ML SYR SC SCH (09:00)
== END 2018-09-07 08:21 | disposition home or self-care (01) ==
LOC: OR 03:39 → MED 13:40
PROVIDERS: ADMIT Surgery; ATTEND Surgery
DX: D12.5 Benign neoplasm of sigmoid colon (principal); K62.1 Rectal polyp; K64.9 Unspecified hemorrhoids; K92.1 Melena
CPT/HCPCS: 00811; 36415; 45384; 45385; 46255; 85025; 88304; 88305; 96372; G0378; J1100; J1650; J1885; J2001; J2405; J2704; J3010; J3490; 82310; 82374; 82435; 82565; 82947; 84132; 84295; 84520